=== PATIENT | male | born 2000 | race Two or more races ===

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

== ENCOUNTER 2021-01-16 20:02 | Emergency (ER) | payer OTHER ==
[~2021-01-16] VITALS: Ht 180.3 cm; Wt 70.3 kg
[~2021-01-16 20:02] MED LIST changes: -LIDOCAINE /MPF 1% VIAL 5 ML VIAL ONE; -LIDOCAINE 1% INJ 50 ML MDV IJ ONE; -TDAP [DIPH/PERTUSSIS/TET] 0.5 ML VIAL IM ONE
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
[2021-01-16] MEDS ORDERED: CYCL5TAB PO (20:40)
[2021-01-16] MEDS ORDERED: IBUP-1955 PO (20:40)
--- NOTE | 2021-01-16 20:44 | NUR ---
PT DISCHARGED INSTRUCTIONS GIVEN LEFT IN STABLE CONDITION
[2021-01-16 20:49] VITALS: BP 120/70
== END 2021-01-16 20:44 | disposition home or self-care (01) ==
LOC: ER 20:02
DX: S09.8XXA Other specified injuries of head, initial encounter (principal); M54.5 Low back pain; M54.2 Cervicalgia; Z79.899 Other long term (current) drug therapy; V49.49XA Driver injured in collision with other motor vehicles in traffic accident, initial encounter; Y93.89 Activity, other specified; Y92.413 State road as the place of occurrence of the external cause; Y99.8 Other external cause status

== ENCOUNTER 2021-10-15 20:38 | Emergency (ER) | payer OTHER ==
[~2021-10-15] VITALS: Ht 180.3 cm; Wt 91.2 kg
[~2021-10-15 20:38] MED LIST changes: +CYCL5TAB PO; +IBUP-1955 PO
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
--- NOTE | 2021-10-15 21:41 | NUR ---
EMT AT PT'S BEDSIDE DOING WOUND CARE
[2021-10-15] MEDS ORDERED: IBUPROFEN 400 MG TABLET ONE (22:55)
[2021-10-15] MEDS ORDERED: TDAP [DIPH/PERTUSSIS/TET] 0.5 ML VIAL IM ONE (22:55)
[2021-10-15] MEDS: IBUPROFEN 400 MG TABLET PO ONE (23:00)
[2021-10-15] MEDS: TDAP [DIPH/PERTUSSIS/TET] 0.5 ML VIAL IM ONE (23:00)
[2021-10-15] MEDS ORDERED: AMOX/CLAVULANATE 875 MG TABLET ONE (23:03)
[2021-10-15] MEDS: AMOX/CLAVULANATE 875 MG TABLET PO ONE (23:05)
--- NOTE | 2021-10-15 23:33 | NUR ---
DR. BEN MANSFIELD AT PT'S BEDSIDE FOR SUTURES
[2021-10-15] MEDS ORDERED: AMOX-430 PO (23:48)
--- NOTE | 2021-10-16 | NUR ---
Patient discharged to home in stable condition. Written and verbal after care instructions given. Patient verbalizes understanding of instruction.
[2021-10-16 00:07] VITALS: BP 127/71
== END 2021-10-16 00:07 | disposition home or self-care (01) ==
LOC: ER 20:46
DX: S01.511A Laceration without foreign body of lip, initial encounter (principal); Z79.899 Other long term (current) drug therapy; Y04.2XXA Assault by strike against or bumped into by another person, initial encounter; Y93.89 Activity, other specified; Y92.89 Other specified places as the place of occurrence of the external cause; Y99.8 Other external cause status
CPT/HCPCS: 12011; 90471; 90715; 99283; A6403

== ENCOUNTER 2021-11-08 14:49 | Emergency (ER) | payer OTHER ==
[~2021-11-08] VITALS: Ht 180.3 cm; Wt 90.7 kg
[~2021-11-08 14:49] MED LIST changes: +AMOX-430 PO
[2021-11-08 14:57] VITALS: BP 119/62
== END 2021-11-08 15:30 | disposition home or self-care (01) ==
LOC: ER 14:53
DX: Z48.02 Encounter for removal of sutures (principal); S01.511D Laceration without foreign body of lip, subsequent encounter; Z79.899 Other long term (current) drug therapy; X58.XXXD Exposure to other specified factors, subsequent encounter

== ENCOUNTER 2023-01-04 07:56 | Emergency (ER) | payer OTHER ==
[~2023-01-04] VITALS: Ht 180.3 cm; Wt 70.8 kg
[2023-01-04] MEDS ORDERED: GUAI120013 PO (08:41)
[2023-01-04] MEDS ORDERED: BENZ-13 PO (08:41)
[2023-01-04 08:51] VITALS: BP 126/68; TEMP 98.1; O2SAT 100
== END 2023-01-04 08:51 | disposition home or self-care (01) ==
LOC: ER 08:05
DX: J06.9 Acute upper respiratory infection, unspecified (principal); Z79.899 Other long term (current) drug therapy; Z20.822 Contact with and (suspected) exposure to COVID-19
CPT/HCPCS: 99283; 87426; C9803

== ENCOUNTER 2023-07-21 00:14 | Inpatient (IN) | payer OTHER ==
[~2023-07-21] VITALS: Ht 180.3 cm; Wt 77.1 kg
[~2023-07-21 00:14] MED LIST changes: +BENZ-13 PO; +GUAI120013 PO
[2023-07-21 00:30] VITALS: O2SAT 98
[2023-07-21] MEDS ORDERED: ONDANSETRON HCL/PF 4 MG/2 ML VIAL ONE ×2 (00:47→02:49)
[2023-07-21] MEDS ORDERED: MORPHINE SULFATE INJ 4 MG/ML DISP.SYRIN ONE ×2 (00:47→02:49)
[2023-07-21] MEDS ORDERED: IOHEXOL-300 100 ML VIAL IV ONE ×2 (00:53→03:03)
[2023-07-21] MEDS ORDERED: CT SWABBABLE VALVE TRANS SET 1 EA INFUS.SET MC ONE ×2 (00:53→03:04)
[2023-07-21] MEDS ORDERED: IV NS 0.9% 250 ML IV ONE ×2 (00:54→03:04)
[2023-07-21] MEDS: IV NS 0.9% 1,000 ML BAG IV ONE (00:56)
[2023-07-21] MEDS: MORPHINE SULFATE INJ 2 MG/ML DISP.SYRIN IV ONE ×2 (00:56→01:30)
[2023-07-21] MEDS: ONDANSETRON HCL/PF 4 MG/2 ML VIAL IVP ONE ×2 (00:56→01:30)
[2023-07-21 01:15] LABS: BASOPHILS % (AUTO) 0.2 % (0.0-2.0); HEMATOCRIT 48 % (39-51); HEMOGLOBIN 16.3 g/dL (13.5-17.5); LYMPHOCYTES # (AUTO) 1.6 K/uL (0.8-4.8); LYMPHOCYTES % (AUTO) 8.2 % (20.0-44.0); MEAN CORPUSCULAR HEMOGLOBIN 28 PG (26.0-33.0); MEAN CORPUSCULAR HGB CONC 34 g/dl (31.0-36.0); MEAN CORPUSCULAR VOLUME 83 fL (80-96); MONOCYTES # (AUTO) 1.2 K/uL (0.1-1.30); MONOCYTES % (AUTO) 6.5 % (2.0-12.0); NEUTROPHILS # (AUTO) 16.1 K/uL (1.8-8.9); NEUTROPHILS % (AUTO) 85.1 % (43.0-81.0); PLATELET COUNT (AUTO) 349 K/uL (150-450); RED BLOOD CELL COUNT(AUTO) 5.76 MIL/uL (4.5-6.0); RED CELL DISTRIBUTION WIDTH 13.2 % (11.5-15.0)
[2023-07-21 01:20] LABS: CALCIUM, SERUM 10.6 mg/dL (8.5-10.1); CREATININE 2.5 mg/dL (0.6-1.3); POTASSIUM 3.7 mmol/L (3.5-5.1)
[2023-07-21 01:27] LABS: ALBUMIN 5.7 g/dL (3.4-5.0); BILIRUBIN,DIRECT 0.2 mg/dL (0.0-0.2); BILIRUBIN,TOTAL 0.8 mg/dL (0.2-1.0); TOTAL PROTEIN, SERUM 10.9 g/dL (6.4-8.2)
[2023-07-21] MEDS: IV LR 1000 ML 1,000 ML BAG IV ONE (02:46)
[2023-07-21 03:30] LABS: LACTIC ACID 2.9 mmol/L (0.4-2.0)
[2023-07-21] MEDS: PIPERACILLIN /TAZOBACTAM 3.375 G in IV D5W 50 ML IV ONE (03:55)
[2023-07-21] MEDS ORDERED: PIPERACI/TAZO 3.375GM/D5W 50ML PB IV ONE (03:56)
[2023-07-21] MEDS ORDERED: PIPERACILLIN /TAZOBACTAM 3.375 G in IV D5W 50 ML IV SCH (06:00)
[2023-07-21] MEDS ORDERED: Z GUARD REMEDY 4 OZ OINT TP PRN (06:00)
[2023-07-21] MEDS ORDERED: ONDANSETRON HCL/PF 4 MG/2 ML VIAL IVP PRN (06:00)
[2023-07-21] MEDS ORDERED: MAG HYDROX/AL HYDROX/SIMETH 30 ML UDC PO PRN (06:00)
[2023-07-21 08:00] VITALS: BP 101/73; TEMP 98.2; O2SAT 94
[2023-07-21] MEDS: IV LR 1000 ML 1,000 ML IV PRN (08:17)
[2023-07-21] MEDS: PANTOPRAZOLE 40 MG VIAL IV SCH (09:31)
[2023-07-21 09:36] LABS: BASOPHILS % (AUTO) 0.4 % (0.0-2.0); EOSINOPHILS % (AUTO) 0.2 % (0.0-6.0); HEMATOCRIT 43 % (39-51); HEMOGLOBIN 14.4 g/dL (13.5-17.5); LYMPHOCYTES # (AUTO) 1.3 K/uL (0.8-4.8); MEAN CORPUSCULAR HEMOGLOBIN 28 PG (26.0-33.0); MEAN CORPUSCULAR HGB CONC 34 g/dl (31.0-36.0); MEAN CORPUSCULAR VOLUME 84 fL (80-96); MONOCYTES # (AUTO) 0.9 K/uL (0.1-1.30); MONOCYTES % (AUTO) 8.9 % (2.0-12.0); NEUTROPHILS # (AUTO) 7.9 K/uL (1.8-8.9); NEUTROPHILS % (AUTO) 77.5 % (43.0-81.0); PLATELET COUNT (AUTO) 289 K/uL (150-450); RED CELL DISTRIBUTION WIDTH 13.4 % (11.5-15.0); WHITE BLOOD COUNT (AUTO) 10.1 K/uL (4.3-11.0)
[2023-07-21] MEDS: PIPERACILLIN /TAZOBACTAM 3.375 G in IV D5W 100 ML IV SCH (10:07)
[2023-07-21 10:13] LABS: LACTIC ACID 1.2 mmol/L (0.4-2.0)
[2023-07-21 10:29] LABS: ALBUMIN 4.3 g/dL (3.4-5.0); BILIRUBIN,TOTAL 0.8 mg/dL (0.2-1.0); CALCIUM, SERUM 9.5 mg/dL (8.5-10.1); CREATININE 1.2 mg/dL (0.6-1.3); PHOSPHORUS 5.6 mg/dL (2.5-4.9); POTASSIUM 4.3 mmol/L (3.5-5.1); TOTAL PROTEIN, SERUM 8.7 g/dL (6.4-8.2)
[2023-07-21 16:00] VITALS: BP 105/61; TEMP 98.1; O2SAT 96
[2023-07-21 21:57] LABS: APPEARANCE,URINE TURBID (CLEAR); BILIRUBIN,URINE NEGATIVE (NEGATIVE); BLOOD, URINE NEGATIVE Ery/uL (NEGATIVE); COLOR,URINE YELLOW (YELLOW); KETONES,URINE NEGATIVE (NEGATIVE); LEUKOCYTE ESTERASE ,URINE NEGATIVE (NEGATIVE); NITRITE, URINE NEGATIVE (NEGATIVE); PH,URINE 6.5 (5.0-8.0); PROTEIN,URINE NEGATIVE (NEGATIVE); UGLUCOSE NEGATIVE (NEGATIVE); UROBILINOGEN,URINE 0.2 EU/dL (0.2)
[2023-07-21 22:02] LABS: CREATININE, URINE 280.2 MG/DL (30.0-125.0); URINE TOTAL PROTEIN 30.6 mg/dL (0-11.9)
[2023-07-21 22:10] LABS: AMPHETAMINE, URINE NEGATIVE (NEGATIVE); BARBITURATE, URINE NEGATIVE (NEGATIVE); BENZODIAZEPINE, URINE NEGATIVE (NEGATIVE); COCCAINE, URINE NEGATIVE (NEGATIVE); PHENCYCLIDINE SCREEN,URINE NEGATIVE (NEGATIVE)
[2023-07-21 22:11] LABS: CANNABINOID, URINE POSITIVE (NEGATIVE); OPIATE, URINE POSITIVE (NEGATIVE)
[2023-07-21 22:39] VITALS: BP 101/62; TEMP 98.4; O2SAT 96
[2023-07-21 23:22] LABS: RBC,URINE 0-2 /HPF (0-2); WBC,URINE 0-2 /HPF (0-3)
[2023-07-21 23:23] LABS: ADD URINE CULTURE NO; BACTERIA,URINE None seen /HPF (None Seen); EOSINOPHIL,URINE None Seen; SQUAMOUS EPITHELIAL CELL,UR Few /HPF (None Seen)
[2023-07-22] MEDS: HYDROMORPHONE 1 MG/1 ML DISP.SYRIN IV PRN (00:08)
[2023-07-22 06:42] LABS: BASOPHILS % (AUTO) 0.8 % (0.0-2.0); EOSINOPHILS # (AUTO) 0.1 K/uL (0.0-0.7); EOSINOPHILS % (AUTO) 1.1 % (0.0-6.0); HEMATOCRIT 42 % (39-51); LYMPHOCYTES # (AUTO) 2.3 K/uL (0.8-4.8); LYMPHOCYTES % (AUTO) 36.6 % (20.0-44.0); MEAN CORPUSCULAR HEMOGLOBIN 29 PG (26.0-33.0); MEAN CORPUSCULAR HGB CONC 34 g/dl (31.0-36.0); MEAN CORPUSCULAR VOLUME 85 fL (80-96); MONOCYTES # (AUTO) 0.5 K/uL (0.1-1.30); NEUTROPHILS # (AUTO) 3.4 K/uL (1.8-8.9); NEUTROPHILS % (AUTO) 53.5 % (43.0-81.0); PLATELET COUNT (AUTO) 264 K/uL (150-450); RED BLOOD CELL COUNT(AUTO) 4.91 MIL/uL (4.5-6.0); RED CELL DISTRIBUTION WIDTH 13.2 % (11.5-15.0); WHITE BLOOD COUNT (AUTO) 6.4 K/uL (4.3-11.0)
[2023-07-22 07:01] LABS: CALCIUM, SERUM 9.4 mg/dL (8.5-10.1); MAGNESIUM 2.1 mg/dL (1.8-2.4); PHOSPHORUS 4.8 mg/dL (2.5-4.9); POTASSIUM 3.8 mmol/L (3.5-5.1)
[2023-07-22 08:00] VITALS: BP 111/64; TEMP 98.6; O2SAT 96
[2023-07-22 16:00] VITALS: BP 112/59; TEMP 98.2; O2SAT 94
[2023-07-22] MEDS: BISACODYL SUPP (10 MG) 10 MG/SUPP.RECT SUPP.RECT RC ONE (16:00)
[2023-07-22] MEDS: MAGNESIUM HYDROXIDE 30 ML UDC PO PRN (19:16)
[2023-07-22 20:00] VITALS: BP 128/65; TEMP 97.3; O2SAT 95
[2023-07-23 08:00] VITALS: BP 106/69; TEMP 97.9; O2SAT 97
[2023-07-23 08:12] LABS: PTH, INTACT 18 pg/mL (15-65)
[2023-07-23] MEDS ORDERED: SIMETHICONE/SOD BICARB/CIT AC 1 EACH GRAN.EF.PK PO ONE ×2 (10:18)
[2023-07-23] MEDS ORDERED: BARIUM SULFATE 98% 135 ML SUSP.RECON PO ONE (10:19)
[2023-07-23 13:09] LABS: *SPE A/G RATIO 1.1 (0.7-1.7); *SPE ALBUMIN 3.9 g/dL (2.9-4.4); *SPE ALPHA-1-GLOBULIN 0.2 g/dL (0.0-0.4); *SPE ALPHA-2-GLOBULIN 0.9 g/dL (0.4-1.0); *SPE BETA GLOBULIN 1.1 g/dL (0.7-1.3); *SPE GLOBULIN, TOTAL 3.7 g/dL (2.2-3.9); *SPE M-SPIKE Not Observed g/dL (Not Observed); *SPE PROTEIN TOTAL 7.6 g/dL (6.0-8.5); *SPEGAMMA GLOBULIN 1.4 g/dL (0.4-1.8)
[2023-07-23 16:00] VITALS: BP 110/69; TEMP 98.6; O2SAT 95
[2023-07-23] MEDS: ACETAMINOPHEN 325 MG TABLET PO PRN (16:33)
[2023-07-23 20:00] VITALS: BP 114/59; TEMP 98.6; O2SAT 98
[2023-07-24] MEDS: ZOLPIDEM TARTRATE 5 MG TABLET PO PRN (00:30)
[2023-07-24 07:30] VITALS: BP 117/60; TEMP 97.5; O2SAT 96
[2023-07-25] MEDS ORDERED: PANTOPRAZOLE 40 MG TABLET.DR PO SCH (07:30)
== END 2023-07-24 14:46 | disposition home or self-care (01) | DRG 254 ==
LOC: ER 00:18 → MED 05:13
PROVIDERS: ADMIT Internal Medicine; ATTEND Internal Medicine
DX: K35.80 Unspecified acute appendicitis (principal); N17.0 Acute kidney failure with tubular necrosis; E87.20 Acidosis, unspecified; E87.1 Hypo-osmolality and hyponatremia; R13.10 Dysphagia, unspecified; E86.9 Volume depletion, unspecified; M89.8X9 Other specified disorders of bone, unspecified site; K59.00 Constipation, unspecified; J34.89 Other specified disorders of nose and nasal sinuses
CPT/HCPCS: 36415; 71260-TC; 74230-TC; 76770-TC; 80048-TC; 80053-TC; 80061-TC; 80076-TC; 81001; 82150-TC; 82550-TC; 82570-TC; 83605-TC; 83690-TC; 83735-TC; 83970; 84100-TC; 84155; 84165; 84300-TC; 85025-TC; 86140-TC; 87040-TC; A4223; C9113; G0378; J1170; J2270; J2405; J2543; J7050; J7060; J7120; Q9967

== ENCOUNTER 2024-08-13 14:04 | Emergency (ER) | payer OTHER ==
[~2024-08-13] VITALS: Ht 180.3 cm; Wt 72.6 kg
[2024-08-13 14:19] VITALS: BP 105/74; TEMP 98.1
[2024-08-13] MEDS ORDERED: KETOROLAC TROMETHAMINE INJ 30 MG/ML VIAL ONE (14:46)
[2024-08-13] MEDS: KETOROLAC TROMETHAMINE INJ 30 MG/ML VIAL IM ONE (14:49)
[2024-08-13 16:26] VITALS: O2SAT 99
== END 2024-08-13 16:27 | disposition home or self-care (01) ==
LOC: ER 14:09
DX: S63.8X1A Sprain of other part of right wrist and hand, initial encounter (principal); F17.200 Nicotine dependence, unspecified, uncomplicated; Z91.048 Other nonmedicinal substance allergy status; W50.0XXA Accidental hit or strike by another person, initial encounter; Y93.89 Activity, other specified; Y92.89 Other specified places as the place of occurrence of the external cause; Y99.8 Other external cause status
CPT/HCPCS: 99283; 96372; 73130; J1885

== ENCOUNTER 2024-08-23 20:07 | Emergency (ER) | payer OTHER ==
[~2024-08-23] VITALS: Ht 180.3 cm; Wt 72.6 kg
[2024-08-23 23:23] LABS: BASOPHILS % (AUTO) 0.5 % (0.0-2.0); EOSINOPHILS % (AUTO) 0.2 % (0.0-6.0); HEMATOCRIT 42 % (39-51); HEMOGLOBIN 14.1 g/dL (13.5-17.5); LYMPHOCYTES # (AUTO) 1.1 K/uL (0.8-4.8); LYMPHOCYTES % (AUTO) 12.1 % (20.0-44.0); MEAN CORPUSCULAR HEMOGLOBIN 30 PG (26.0-33.0); MEAN CORPUSCULAR HGB CONC 34 g/dl (31.0-36.0); MEAN CORPUSCULAR VOLUME 88 fL (80-96); MONOCYTES # (AUTO) 0.5 K/uL (0.1-1.30); MONOCYTES % (AUTO) 5.9 % (2.0-12.0); NEUTROPHILS # (AUTO) 7.1 K/uL (1.8-8.9); NEUTROPHILS % (AUTO) 81.3 % (43.0-81.0); PLATELET COUNT (AUTO) 236 K/uL (150-450); RED BLOOD CELL COUNT(AUTO) 4.74 MIL/uL (4.5-6.0); RED CELL DISTRIBUTION WIDTH 14.2 % (11.5-15.0); WHITE BLOOD COUNT (AUTO) 8.8 K/uL (4.3-11.0)
[2024-08-23 23:28] LABS: CALCIUM, SERUM 9.8 mg/dL (8.5-10.1); CARBON DIOXIDE 33 mmol/L (21-32); CHLORIDE 103 mmol/L (98-107); CREATININE 0.8 mg/dL (0.6-1.3); GLUCOSE 77 mg/dL (74-106); POTASSIUM 3.9 mmol/L (3.5-5.1); SODIUM SERUM 140 mmol/L (136-145); UREA NITROGEN, BLOOD 16 mg/dL (7-18)
[2024-08-23] MEDS: IV NS 0.9% 1,000 ML IV ONE (23:30)
[2024-08-23 23:39] LABS: ALANINE AMINOTRANSFERASE 27 U/L (12-78); ALBUMIN 4.2 g/dL (3.4-5.0); ALCOHOL, BLOOD < 3 mg/dL (0-10); ALKALINE PHOSPHATASE 81 U/L (46-116); ASPARTATE AMINOTRANSFERASE 26 U/L (15-37); BILIRUBIN,TOTAL 0.3 mg/dL (0.2-1.0); NT-PRO BNP 158 pg/mL (0-125); TOTAL PROTEIN, SERUM 7.7 g/dL (6.4-8.2)
[2024-08-24 02:20] LABS: APPEARANCE,URINE CLEAR (CLEAR); BILIRUBIN,URINE NEGATIVE (NEGATIVE); BLOOD, URINE NEGATIVE Ery/uL (NEGATIVE); COLOR,URINE YELLOW (YELLOW); KETONES,URINE TRACE mg/dL (NEGATIVE); LEUKOCYTE ESTERASE ,URINE NEGATIVE (NEGATIVE); NITRITE, URINE NEGATIVE (NEGATIVE); PROTEIN,URINE TRACE mg/dl (NEGATIVE); UGLUCOSE NEGATIVE (NEGATIVE)
[2024-08-24 02:21] LABS: ADD URINE CULTURE NO; BACTERIA,URINE Rare /HPF (None Seen); RBC,URINE 0-2 /HPF (0-2); SQUAMOUS EPITHELIAL CELL,UR Few /HPF (None Seen); WBC,URINE 0-2 /HPF (0-3)
[2024-08-24 02:34] LABS: AMPHETAMINE, URINE NEGATIVE (NEGATIVE); BARBITURATE, URINE NEGATIVE (NEGATIVE); BENZODIAZEPINE, URINE NEGATIVE (NEGATIVE); COCCAINE, URINE NEGATIVE (NEGATIVE); OPIATE, URINE NEGATIVE (NEGATIVE); PHENCYCLIDINE SCREEN,URINE NEGATIVE (NEGATIVE)
[2024-08-24 02:35] LABS: CANNABINOID, URINE POSITIVE (NEGATIVE)
[2024-08-24 04:13] VITALS: BP 107/58; TEMP 97.5; O2SAT 98
== END 2024-08-24 04:13 | disposition home or self-care (01) ==
LOC: ER 20:10
DX: R00.1 Bradycardia, unspecified (principal); R55 Syncope and collapse; R42 Dizziness and giddiness; Z79.899 Other long term (current) drug therapy
CPT/HCPCS: 99285; 96360; 93005; 71045; 85025; 87040; 83605; 85378; 36415; 80053; 84484; 83880; 80320; 80307; 81001; J7030; G0480

== ENCOUNTER 2025-04-02 14:09 | Emergency (ER) | payer OTHER ==
[~2025-04-02] VITALS: Ht 180.3 cm; Wt 70.3 kg
[2025-04-02 15:16] VITALS: BP 118/67; TEMP 98.1
[2025-04-02] MEDS ORDERED: TDAP [DIPH/PERTUSSIS/TET] 0.5 ML VIAL IM ONE (15:34)
[2025-04-02] MEDS: TDAP [DIPH/PERTUSSIS/TET] 0.5 ML VIAL IM ONE (15:39)
[2025-04-02] MEDS ORDERED: MUPI22OI2 TP (15:54)
[2025-04-02 16:01] VITALS: O2SAT 99
== END 2025-04-02 15:57 | disposition home or self-care (01) ==
LOC: ER 14:09
DX: S61.213A Laceration without foreign body of left middle finger without damage to nail, initial encounter (principal); Z91.048 Other nonmedicinal substance allergy status; W22.8XXA Striking against or struck by other objects, initial encounter; Y93.89 Activity, other specified; Y92.89 Other specified places as the place of occurrence of the external cause; Y99.8 Other external cause status
CPT/HCPCS: 73130-TC; 90715